=== PATIENT | male | born 2000 | race Hispanic/Latino ===

== ENCOUNTER 2020-10-28 18:28 | Emergency (ER) | payer OTHER ==
[~2020-10-28] VITALS: Ht 177.8 cm; Wt 60.0 kg
[2020-10-28] MEDS ORDERED: KETOROLAC TROMETHAMINE 10 MG TAB PO ONE (19:15)
--- NOTE | 2020-10-28 19:58 | REP ---
INDICATION: hernia. COMPARISON: None. TECHNIQUE: Multiple ultrasonographic images of the right femora how area without and with Valsalva. FINDINGS: No hernia is identified in the right femoral area. [employer] images of the left femoral air are performed for comparison. IMPRESSION: No ultrasound evidence of a hernia in the right femoral area. <Electronically signed by Luis Carlos Gregory > 10/28/201953
[2020-10-28] MEDS ORDERED: KETO10TAB PO (20:34)
[2020-10-28] MEDS ORDERED: ROBA750T4 PO (20:34)
[2020-10-28 20:45] VITALS: BP 143/72
== END 2020-10-28 20:49 | disposition home or self-care (01) ==
LOC: M ED 18:28
DX: S76.011A Strain of muscle, fascia and tendon of right hip, initial encounter (principal); X58.XXXA Exposure to other specified factors, initial encounter; Y92.89 Other specified places as the place of occurrence of the external cause

== ENCOUNTER 2020-11-17 19:32 | Emergency (ER) | payer OTHER ==
[~2020-11-17] VITALS: Ht 177.8 cm; Wt 63.6 kg
[~2020-11-17 19:32] MED LIST: KETO10TAB PO; ROBA750T4 PO
[2020-11-17] MEDS ORDERED: KETOROLAC TROMETHAMINE 10 MG TAB PO ONE (21:15)
[2020-11-17] MEDS ORDERED: methocarbamoL 500 MG TAB PO ONE (21:15)
--- NOTE | 2020-11-17 22:06 | REPVR ---
PROCEDURE INFORMATION: Exam: XR Right Hip Exam date and time: 11/17/2020 9:31 PM Age: 20 years old Clinical indication: Hip pain and pelvic pain; Right hip; Patient HX: PT states pain for months , and was unable to feel his foot this am. ; Additional info: Groin pain TECHNIQUE: Imaging protocol: XR Right hip. Views: 2 or 3 views hip with pelvis when performed. COMPARISON: No relevant prior studies available. FINDINGS: Bones/joints: Joint spaces are normal. No fracture or malalignment. Soft tissues: Unremarkable. IMPRESSION: No fracture or malalignment. Electronically signed by: Samir Davis On 11/17/2020 22:06:37 PM
--- NOTE | 2020-11-17 22:36 | REPVR ---
PROCEDURE INFORMATION: Exam: US Right Non-Vascular Joint or Other Extremity Structure Exam date and time: 11/17/2020 10:21 PM Age: 20 years old Clinical indication: Pain; Hip; Right; Additional info: Groin pain TECHNIQUE: Imaging protocol: Right US joint or other nonvascular extremity structure or structures. Real-time ultrasound with image documentation. Limited study. Exam focused on the lower extremity in the region of clinical interest. COMPARISON: No relevant prior studies available. FINDINGS: Soft tissues: Unremarkable. No loculated collections or edema. No mass is seen. Bones/joints: Fluid in the right hip joint space appears slightly increased compared to the left side. Visualized hip joint spaces are otherwise unremarkable. Vasculature: The proximal common femoral vein and greater saphenous vein are patent without visible thrombus. IMPRESSION: 1. Soft tissues are unremarkable. 2. Slightly asymmetrically increased fluid in the right hip joint compared to the left which is of uncertain significance. Electronically signed by: Samir Davis On 11/17/2020 22:36:40 PM
[2020-11-17] MEDS ORDERED: KETO10TAB PO (22:45)
[2020-11-17] MEDS ORDERED: ROBA750T4 PO (22:46)
[2020-11-17 22:58] VITALS: BP 103/58
[2020-11-17] MEDS ORDERED: OXYCODONE/APAP 5MG/325MG(BULK FOR ED) 1 TABLET PO ONE (23:00)
[2020-11-17 23:36] LABS: BASO % 0.5 % (0.0-1.0); EOS # 0.1 10^3/uL (0.0-0.5); EOS % 1.6 % (0.0-3.0); HEMATOCRIT 45.2 % (42.0-52.0); LYMPH # 2.1 10^3/uL (1.5-5.0); LYMPH % 34.3 % (24.0-44.0); MEAN CORPUSCULAR HEMOGLOBIN 31.1 pg (27.0-33.0); MEAN CORPUSCULAR HGB CONC 33.2 g/dl (32.0-36.5); MEAN CORPUSCULAR VOLUME 93.8 fl (80.0-96.0); MONO # 0.6 10^3/uL (0.0-0.8); MONO % 10.1 % (2.0-8.0); NEUTROPHILS # 3.3 10^3/uL (1.5-8.5); NEUTROPHILS % 53.3 % (36.0-66.0); PLATELET COUNT, AUTOMATED 226 10^3/uL (150-450); RED BLOOD COUNT 4.82 10^6/uL (4.30-6.10); WHITE BLOOD COUNT 6.2 10^3/uL (4.0-10.0)
[2020-11-18 00:03] LABS: ERYTHROCYTE SEDIMENTATION RATE 2 mm/hr (0-15)
== END 2020-11-17 23:08 | disposition home or self-care (01) ==
LOC: M ED 19:32
DX: M25.551 Pain in right hip (principal); Z79.899 Other long term (current) drug therapy

== ENCOUNTER → 2020-12-07 | Outpatient (CLI) | payer OTHER ==
[~2020-12-07] MED LIST changes: +ISOVUE-300 61% 50ML VIAL As Ordered ONE; +PROHANCE 279.3MG/ML 5ML VIAL As Ordered ONE
--- NOTE | 2020-12-07 09:43 | REP ---
INDICATION: PAIN IN RT HIP. Right groin and hip pain. Rule out labral tear. COMPARISON: Comparison radiographs of the right hip November 17, 2020.. TECHNIQUE: Precontrast imaging includes coronal T1 and T2-weighted scans of both hips. Precontrast high-resolution smaller field of view axial, coronal and sagittal T2 fat sat images are acquired of the right hip. The injection procedure is performed and dictated separately. Postcontrast T1 fat sat images are acquired in all 3 planes. FINDINGS: Precontrast images show normal cortical and medullary bone signal intensity in the femoral heads bilaterally. There is no evidence of avascular necrosis. However, there is a intramedullary 2.6 cm lesion in the inter trochanteric femur on the left noted incidentally consistent with a small enchondroma or hemangioma. Head neck junction morphology is normal. Minimal joint fluid is present bilaterally. Periarticular soft tissues are unremarkable bilaterally. No bursal effusion is seen. Seminal vesicles, prostate, and urinary bladder are intact. The visualized bony pelvic ring is unremarkable. Hamstring tendon insertion is unremarkable. Post intra-articular injection images show good filling and enhancement of the right hip articulation. There is no visible labral tear. Ligamentum teres is intact. No loose body is seen. IMPRESSION: Negative right hip MR arthrography. No evidence of labral tear. Incidental 2.6 cm non-aggressive lesion in the intertrochanteric femur on the left consistent with enchondroma versus hemangioma. Consider comparison radiographs. <Electronically signed by Micheal Hussein > 12/07/20 0939
--- NOTE | 2020-12-07 14:16 | REP ---
INDICATION: PAIN IN RT HIP. COMPARISON: None. TECHNIQUE: The procedure was performed under the direction supervision of Dr. Hussein. The benefits and risks including but not limited to pain, infection, bleeding and anaphylaxis were explained to the patient and informed consent was obtained. The right femoral neck was localized using fluoroscopic guidance. Skin was prepped and draped in a sterile fashion. 1% lidocaine was used as a local anesthetic. Using fluoroscopic guidance, and last image hold technology, a 22 gauge spinal needle was inserted and advanced to the femoral neck. 0.5 ml of Isovue-300 was injected to verify placement. 11 ml of a solution containing 20 ml of sterile saline and 0.15 ml of ProHance was injected into the joint. The needle was removed and the patient was taken to MRI for postprocedural imaging. The patient tolerated the procedure well and there were no immediate complications. Less than 6 seconds of fluoro time was utilized for this procedure. FINDINGS: None IMPRESSION: Fluoro guidance for right hip MRI arthrogram injection. <Electronically signed by Conrado Grant > 12/07/20 1412 <Electronically signed by Micheal Hussein > 12/07/20 1419
== END ==
LOC: M RADPRO 06:11
PROVIDERS: ATTEND Orthopaedic Surgery
DX: M25.551 Pain in right hip (principal)
CPT/HCPCS: 27093; 73723; 77002; A9576; Q9967

== ENCOUNTER → 2021-01-21 | Outpatient (CLI) | payer OTHER ==
[~2021-01-21] MED LIST changes: +LIDOCAINE 1% MDV 20ML VIAL As Ordered ONE; -PROHANCE 279.3MG/ML 5ML VIAL As Ordered ONE; +TRIAMCINOLONE ACETONIDE SUSP 40 MG/ML VIAL (J3301) As Ordered ONE
--- NOTE | 2021-01-22 18:37 | REP ---
INDICATION: RT HIP PAIN. COMPARISON: None. TECHNIQUE: The procedure was performed under the direct supervision of Dr. Slade. The benefits and risks including but not limited to pain infection and bleeding and anaphylaxis were explained to the patient and informed consent was obtained. The right femoral neck was localized using fluoroscopic guidance. The skin was prepped and draped in a sterile fashion. 1% lidocaine was used as a local anesthetic. Using fluoroscopic guidance, and last image hold technology, a 22-gauge spinal needle was inserted and advanced to the femoral neck. 0.5 ml of Isovue-300 was injected to verify placement. Six ml of a solution containing 5 ml of 1% Xylocaine and 1 mL of Kenalog 40 mg was injected. The needle was then removed. The patient tolerated the procedure well and there were no immediate complications. Less than 6 seconds of fluoro time was utilized for this procedure. FINDINGS: None IMPRESSION: Fluoro guidance for right hip injection. <Electronically signed by Conrado Grant > 01/21/21 1721 <Electronically signed by Luis Carlos Slade > 01/22/21 1128
== END ==
LOC: M RADPRO 13:15
PROVIDERS: ATTEND Physician Assistant Surgical
DX: M25.551 Pain in right hip (principal)
CPT/HCPCS: 20610; 77002; J3301; Q9967